=== PATIENT | female | born 1990 | race Caucasian/White ===

== ENCOUNTER 2018-03-12 10:46 | Emergency (ER) | payer BC, OTHER ==
--- OUTSIDE RECORDS SUMMARY | 2018-03-12 10:49 | XMS REPORT | Summary of Care ---
:1990 Author Organization [facility] [address] Address [address] [place] [address]- Encounter HQ Encntr_alias(FIN) [id number] Date(s): 04/27/17 - 04/27/17 [facility] [address] [place] [address] [phone] Discharge Disposition: Home or Self Care Attending Physician: Alfredo Malcolm MD Referring Physician: Brooke Shukla MD Vital Signs No data available for this section Problem List Condition Effective Dates Status Health Status Informant Obesity(Confirmed) Active Seizures(Confirmed) Resolved Allergies, Adverse Reactions, Alerts Substance Reaction Severity Status NKDA Active Medications No data available for this section Results No data available for this section Immunizations No data available for this section Procedures No data available for this section Social History Social History Type Response Smoking Status Never smoker; Exposure to Tobacco Smoke None; Cigarette Smoking Last 365 Days No; Reg Smoking Cessation Counseling No entered on: 04/27/17 Assessment and Plan No data available for this section
--- OUTSIDE RECORDS SUMMARY | 2018-03-12 10:49 | XMS REPORT | Continuity of Care Document ---
:1990 Author Organization Interface Problems Problem Status Onset Classification Date Comments Source Date Reported Obesity Active Problem 07/17/2017 [facility] Seizures Resolved Problem 07/17/2017 [facility] Medications Medication Details Route Status Patient Ordering Order Source Instructions Provider Date Allergies, Adverse Reactions, Alerts Substance Category Reaction Severity Reaction Status Date Comments Source type Reported Immunizations Immunization Date Given Site Status Last Updated Comments Source Results Order Results Value Reference Date Interpretation Comments Source Name Range Vital Signs Vital Sign Value Date Comments Source Encounters Location Location Encounter Encounter Reason Attending ADM DC Status Source Details Type Number For Provider Date Date Visit Outpatient [id number] [place] 06/02 Active [facility] [id number] [place] 09/08 [facility] [id number] [place] 12/08 [facility] Outpatient [id number] [place] 12/22 [facility] Outpatient [id number] [place] 04/27 [facility] Outpatient [id number] [place] 04/27 [facility] [id number] [facility] 04/27 04/28 [facility] Pre-Reg [place] /2017 [facility] 250 Outpatient [id number] [place] 12/29 Active [facility] Outpatient [id number] [place] 03/21 [facility] Procedures Procedure Code Date Perfomer Comments Source
[2018-03-12] MEDS ORDERED: ONDANSETRON 4 MG/2 ML VIAL ONE (11:24)
[2018-03-12] MEDS ORDERED: NA CHLORIDE 0.9% 1,000 ML ONE (11:24)
[2018-03-12 11:40] LABS: Absolute Lymphocytes (CBC) 0.7 K/uL (0.7-4.9); Absolute Monocytes 0.6 K/uL (0.1-1.3); Basophils % 0.2 % (0-1.3); Eosinophils % 0.9 % (0-4.4); Hematocrit 43.5 % (36.0-45.0); Lymphocytes % 7.9 % (15.3-44.8); MCH 29.9 pg (27.0-35.0); MCV 85.8 fL (80-100); MPV 9.4 fL (7.6-11.3); Monocytes % 7.1 % (3.3-12.3); RBC Red Blood Cell Count 5.06 M/uL (3.86-4.86)
[2018-03-12 12:03] LABS: ALT/SGPT 16 U/L (12-78); Albumin 4.1 g/dL (3.4-5.0); Alkaline Phosphatase 52 U/L (45-117); BUN Blood Urea Nitrogen 16 mg/dL (7-18); Bicarbonate 27 mmol/L (21-32); Bilirubin Direct 0.1 mg/dL (0-0.2); Bilirubin Total 0.5 mg/dL (0.2-1.0); Glucose Level 82 mg/dL (74-106); Lipase 112 U/L (73-393); Potassium 3.8 mmol/L (3.5-5.1); Protein, Total 7.7 g/dL (6.4-8.2); Sodium Level 139 mmol/L (136-145)
[2018-03-12 12:06] LABS: AST/SGOT < 3 U/L (15-37)
--- NOTE | 2018-03-12 12:14 | ER ---
Nurse's Notes [facility] Name: Yael Alvarez Age: 27 yrs Sex: Female : 1990 Arrival Date: 03/12/2018 Time: 10:55 Bed 8 Private MD: None, None Diagnosis: Nausea and vomiting;Diarrhea, unspecified Presentation: 03/12 10:58 Presenting complaint: Patient states: n/v/d since yesterday. Denies fever. Transition sv of care: patient was not received from another setting of care. Onset of symptoms was March 11, 2018. Care prior to arrival: None. 10:58 Method Of Arrival: Ambulatory sv 10:58 Acuity: ANNABEL 3 sv 13:02 Risk Assessment: Do you want to hurt yourself or someone else? Patient reports no aj desire to harm self or others. Initial Sepsis Screen: Does the patient meet any 2 criteria? No. Patient's initial sepsis screen is negative. Does the patient have a suspected source of infection? No. Patient's initial sepsis screen is negative. Historical: - Allergies: 10:59 No Known Allergies; sv - Home Meds: 10:59 Depakote Oral [Active]; sv - PMHx: 10:59 Seizures; sv - PSHx: 10:59 None; sv - Immunization history:: Flu vaccine is not up to date. - Social history:: Smoking status: Patient/guardian denies using tobacco. - Ebola Screening: : No symptoms or risks identified at this time. Screenin:35 Abuse screen: Denies threats or abuse. Denies injuries from another. Nutritional aj screening: No deficits noted. Tuberculosis screening: No symptoms or risk factors identified. Fall Risk None identified. Assessment: 11:35 General: Appears in no apparent distress. comfortable, Behavior is calm, cooperative, aj appropriate for age. Pain: Denies pain. Neuro: Level of Consciousness is awake, alert, obeys commands, Oriented to person, place, time, situation, Appropriate for age. Respiratory: Airway is patent Respiratory effort is even, unlabored, Respiratory pattern is regular, symmetrical. GI: Abdomen is flat, Reports diarrhea, nausea, vomiting. Derm: Skin is intact, is healthy with good turgor, Skin is pink, warm \T\ dry. normal. 13:00 Reassessment: Patient appears in no apparent distress at this time. No changes from aj previously documented assessment. Patient and/or family updated on plan of care and expected duration. Pain level reassessed. Patient is alert, oriented x 3, equal unlabored respirations, skin warm/dry/pink. Patient denies pain at this time. Patient states feeling better. Patient states symptoms have improved. Vital Signs: 10:59 BP 138 / 82; Pulse 98; Resp 18; Temp 97.4; Pulse Ox 99% ; Height 5 ft. 9 in. (175.26 sv cm); Pain 0/10; 11:03 Weight 102.06 kg (M); aa5 12:58 BP 106 / 50; Pulse 81; Resp 16; Pulse Ox 99% on R/A; aj 13:00 BP 106 / 50; Pulse 81; Resp 18; Pulse Ox 99% on R/A; aj 11:03 Body Mass Index 33.23 (102.06 kg, 175.26 cm) aa5 ED Course: 10:55 Patient arrived in ED. mr 10:56 None, None is Private Physician. mr 10:59 Triage completed. sv 11:00 Arm band placed on. sv 11:01 Keiko Royal, RN is Primary Nurse. aj 11:04 Manjeet Louise, BOTTLE WASHER is PHCP. pm1 11:04 Ayden Lama MD is Attending Physician. pm1 11:35 Patient has correct armband on for positive identification. aj 11:35 Inserted saline lock: 20 gauge in right forearm, using aseptic technique. Blood aj collected. 13:01 No provider procedures requiring assistance completed. IV discontinued, intact, aj bleeding controlled, No redness/swelling at site. Pressure dressing applied. Administered Medications: 11:34 Drug: NS 0.9% 1000 ml Route: IV; Rate: 1000 ml; Site: right forearm; aj 12:58 Follow up: BP 106 / 50; Pulse 81 bpm; Resp 16 bpm; Pulse Ox 99% RA; Response: No aj adverse reaction 12:59 Follow up: IV Status: Completed infusion; IV Intake: 1000ml aj 11:34 Drug: Zofran 4 mg Route: IVP; Site: right forearm; aj 12:59 Follow up: Response: No adverse reaction; Nausea is decreased aj Intake: 12:59 IV: 1000ml; Total: 1000ml. aj Outcome: 12:13 Discharge ordered by . pm1 13:01 Discharged to home ambulatory, with significant other. nakul 13:01 Condition: good 13:01 Discharge instructions given to patient, significant other, Instructed on discharge instructions, follow up and referral plans. medication usage, Demonstrated understanding of instructions, follow-up care, medications, Prescriptions given X 1. 13:03 Patient left the ED. nakul Signatures: Cris Mcclure RN RN sv Myers, Amanda, RN RN aj Rivera, Mary mr Ronquillo, Reyna RN RN aa5 Manjeet Louise, [place] BOTTLE WASHER pm1 Corrections: (The following items were deleted from the chart) 13:03 13:02 General: Appears in no apparent distress. comfortable, aj nakul 13:03 13:02 GI: Reports nausea, nakul mota
--- NOTE | 2018-03-12 12:15 | EDPHYS ---
Physician Documentation [facility] Name: Yael Alvarez Age: 27 yrs Sex: Female : 1990 Arrival Date: 03/12/2018 Time: 10:55 Bed 8 Private MD: None, None ED Physician Ayden Lama HPI: 03/12 11:13 This 27 yrs old Female presents to ER via Ambulatory with complaints of pm1 Vomiting. 11:13 The patient presents to the emergency department with nausea, vomiting, 6 times since pm1 last night, described as undigested food, diarrhea, 4 times since the onset of symptoms. Onset: The symptoms/episode began/occurred last night. Possible causes: unknown. The symptoms are aggravated by food , The symptoms are alleviated by nothing. Associated signs and symptoms: Pertinent negatives: abdominal pain, dysuria, fever. Severity of symptoms: in the emergency department the symptoms are unchanged. The patient has not recently seen a physician. Patient with vomiting and diarrhea onset since last night. She came to the ER because she was concerned that she would not be able to keep her medications for seizures down. She was able to take her medication this AM. Historical: - Allergies: 10:59 No Known Allergies; sv - Home Meds: 10:59 Depakote Oral [Active]; sv - PMHx: 10:59 Seizures; sv - PSHx: 10:59 None; sv - Immunization history:: Flu vaccine is not up to date. - Social history:: Smoking status: Patient/guardian denies using tobacco. - Ebola Screening: : No symptoms or risks identified at this time. ROS: 11:13 Constitutional: Negative for fever, chills, and weight loss, Eyes: Negative for injury, pm1 pain, redness, and discharge, ENT: Negative for injury, pain, and discharge, Neck: Negative for injury, pain, and swelling, Cardiovascular: Negative for chest pain, palpitations, and edema, Respiratory: Negative for shortness of breath, cough, wheezing, and pleuritic chest pain. 11:13 Back: Negative for injury and pain, : Negative for injury, bleeding, discharge, and swelling, MS/Extremity: Negative for injury and deformity, Skin: Negative for injury, rash, and discoloration, Neuro: Negative for headache, weakness, numbness, tingling, and seizure. 11:13 Abdomen/GI: Positive for nausea, vomiting, and diarrhea, Negative for abdominal pain. Exam: 11:13 Constitutional: This is a well developed, well nourished patient who is awake, alert, pm1 and in no acute distress. Head/Face: Normocephalic, atraumatic. Eyes: Pupils equal round and reactive to light, extra-ocular motions intact. Lids and lashes normal. Conjunctiva and sclera are non-icteric and not injected. Cornea within normal limits. Periorbital areas with no swelling, redness, or edema. ENT: Nares patent. No nasal discharge, no septal abnormalities noted. Tympanic membranes are normal and external auditory canals are clear. Oropharynx with no redness, swelling, or masses, exudates, or evidence of obstruction, uvula midline. Mucous membranes moist. Neck: Trachea midline, no thyromegaly or masses palpated, and no cervical lymphadenopathy. Supple, full range of motion without nuchal rigidity, or vertebral point tenderness. No Meningismus. Chest/axilla: Normal chest wall appearance and motion. Nontender with no deformity. No lesions are appreciated. Cardiovascular: Regular rate and rhythm with a normal S1 and S2. No gallops, murmurs, or rubs. Normal PMI, no JVD. No pulse deficits. Respiratory: Lungs have equal breath sounds bilaterally, clear to auscultation and percussion. No rales, rhonchi or wheezes noted. No increased work of breathing, no retractions or nasal flaring. 11:13 Back: No spinal tenderness. No costovertebral tenderness. Full range of motion. Skin: Warm, dry with normal turgor. Normal color with no rashes, no lesions, and no evidence of cellulitis. MS/ Extremity: Pulses equal, no cyanosis. Neurovascular intact. Full, normal range of motion. 11:13 Abdomen/GI: Inspection: abdomen appears normal, Bowel sounds: normal, Palpation: abdomen is soft and non-tender, in all quadrants, mass, is not appreciated, rebound tenderness, is not appreciated. 11:13 Neuro: Orientation: is normal, Motor: is normal, Sensation: is normal, no obvious gross deficits, Gait: is steady, at a normal pace, without difficulty. Vital Signs: 10:59 BP 138 / 82; Pulse 98; Resp 18; Temp 97.4; Pulse Ox 99% ; Height 5 ft. 9 in. (175.26 sv cm); Pain 0/10; 11:03 Weight 102.06 kg (M); aa5 12:58 BP 106 / 50; Pulse 81; Resp 16; Pulse Ox 99% on R/A; aj 13:00 BP 106 / 50; Pulse 81; Resp 18; Pulse Ox 99% on R/A; aj 11:03 Body Mass Index 33.23 (102.06 kg, 175.26 cm) aa5 MDM: 11:04 Patient medically screened. pm1 11:18 Data reviewed: vital signs. Data interpreted: Pulse oximetry: on room air is 99 %. pm1 Interpretation: normal. 12:08 ED course: Patient's nausea resolved. Patient feels hungry and ready to eat. pm1 12:09 Counseling: I had a detailed discussion with the patient and/or guardian regarding: the pm1 historical points, exam findings, and any diagnostic results supporting the discharge/admit diagnosis, lab results, the need for outpatient follow up, to return to the emergency department if symptoms worsen or persist or if there are any questions or concerns that arise at home. 03/12 11:13 Order name: Basic Metabolic Panel; Complete Time: 12:07 pm1 12 11:13 Order name: CBC with Diff; Complete Time: 12:05 pm1 12 11:13 Order name: Hepatic Function; Complete Time: 12:07 pm1 12 11:13 Order name: Lipase; Complete Time: 12:07 pm1 12 11:13 Order name: IV Saline Lock; Complete Time: 11:34 pm1 12 11:13 Order name: Labs collected and sent; Complete Time: 11:35 pm1 Administered Medications: 11:34 Drug: NS 0.9% 1000 ml Route: IV; Rate: 1000 ml; Site: right forearm; aj 12:58 Follow up: BP 106 / 50; Pulse 81 bpm; Resp 16 bpm; Pulse Ox 99% RA; Response: No aj adverse reaction 12:59 Follow up: IV Status: Completed infusion; IV Intake: 1000ml aj 11:34 Drug: Zofran 4 mg Route: IVP; Site: right forearm; aj 12:59 Follow up: Response: No adverse reaction; Nausea is decreased aj Disposition: 03/12/18 12:13 Discharged to Home. Impression: Nausea and vomiting, Diarrhea, unspecified. - Condition is Stable. - Discharge Instructions: Food Choices to Help Relieve Diarrhea, Adult, Diarrhea, Adult, Food Poisoning, Nausea and Vomiting, Adult, Viral Gastroenteritis, Adult. - Prescriptions for Zofran 4 mg Oral Tablet - take 1 tablet by ORAL route every 8 hours As needed; 20 tablet. - Work release form, Medication Reconciliation Form, Thank You Letter form. - Follow up: Emergency Department; When: As needed; Reason: Worsening of condition. Follow up: Private Physician; When: 2 - 3 days; Reason: Recheck today's complaints, Continuance of care, Re-evaluation by your physician. - Problem is new. - Symptoms have improved. Addendum: 03/14/2018 06:22 Co-signature as Attending Physician, Ayden Lama MD I agree with the assessment and c farias plan of care. Signatures: Dispatcher [employer] Cris Trinidad RN RN sv Myers, Amanda, RN RN aj Anderson, Corey, MD MD cha Marinas, Patrick, ENTER[employer]ISE SYSTEMS ARCHITECT ENTERPRISE SYSTEMS ARCHITECT pm1 Corrections: (The following items were deleted from the chart) 03/12 13:03 12:13 03/12/2018 12:13 Discharged to Home. Impression: Nausea and vomiting; Diarrhea, aj unspecified. Condition is Stable. Forms are Medication Reconciliation Form, Thank You Letter, Antibiotic Education, Prescription Opioid Use. Follow up: Emergency Department; When: As needed; Reason: Worsening of condition. Follow up: Private Physician; When: 2 - 3 days; Reason: Recheck today's complaints, Continuance of care, Re-evaluation by your physician. Problem is new. Symptoms have improved. pm1
== END 2018-03-12 13:03 | disposition home or self-care (01) ==
LOC: ER 10:46
DX: R11.2 Nausea with vomiting, unspecified (principal); R19.7 Diarrhea, unspecified; G40.909 Epilepsy, unspecified, not intractable, without status epilepticus; Z79.899 Other long term (current) drug therapy
CPT/HCPCS: 36415; 80048; 80076; 83690; 85025; 96361; 96374; 99284; J2405; J7030

== ENCOUNTER 2018-07-23 09:47 | Emergency (ER) | payer BC ==
--- OUTSIDE RECORDS SUMMARY | 2018-07-23 09:50 | XMS REPORT | Summary of Care ---
:1990 Author Organization [facility] Address [address], [address] [place] [address]- Encounter HQ Encntr_alias(FIN) [id number] Date(s): 12/29/17 - 12/29/17 [facility] [address] [place] [address]- [phone] Attending Physician: Alfredo Malcolm MD Referring Physician: Brooke Shukla MD Vital Signs No data available for this section Problem List Condition Effective Dates Status Health Status Informant Obesity(Confirmed) Active Intractable partial complex seizure Active disorder(Confirmed) Seizures(Confirmed) Resolved Allergies, Adverse Reactions, Alerts Substance Reaction Severity Status NKDA Active Medications No data available for this section Results No data available for this section Immunizations No data available for this section Procedures No data available for this section Social History Social History Type Response Employment/School 1 Alcohol Current, Type Beer.2 Smoking Status Unknown if ever smoked; Exposure to Tobacco Smoke Unable to obtain; Cigarette Smoking Last 365 Days No; Reg Smoking Cessation Counseling No entered on: 05/25/18 1Can release medical information to Obdulia Ambrose-Boyfriend, Sister Nicole Patel21 beer in the last 2wks Assessment and Plan No data available for this section
--- OUTSIDE RECORDS SUMMARY | 2018-07-23 09:50 | XMS REPORT | Continuity of Care Document ---
:1990 Author Organization Interface Problems Problem Status Onset Classification Date Comments Source Date Reported Obesity Active Problem 07/18/2018 [facility] Seizures Resolved Problem 07/18/2018 [facility] Intractable Active Problem 07/18/2018 [facility] seizure disorder Medications Medication Details Route Status Patient Ordering [...] Number For Provider Date Date Visit Outpatient [id number] [place] [facility] [place] [facility] [id number] [place] [facility]/08 [facility] [place] [facility] [id number] [place] 12[facility]08 [facility] [id number] [place] 12/22 [facility] [place] [facility] [place] [facility] [id number] [place] 04/27 [facility] [id number] [place] 04/27 [facility] [place] [facility] [id number] [place] 04/27 04/28 [facility] 4 [place] /2017 [facility] [place] [address] Outpatient [id number] [place] 12/29 [facility] [place] [facility] [id number] [place] 12/29 12/29 [facility] 6 [facility] [place] Outpatient [id number] [place] 03/21 [facility] [id number] PATY KRELL 05/25 [facility] [place] [facility] [id number] PATY KRELL 06/17 [facility] [id number] PATY KRELL 07/29 [facility] [place] Procedures Procedure Code Date Perfomer Comments Source
--- NOTE | 2018-07-23 10:29 | EDPHYS ---
Physician Documentation [facility] Name: Yael Alvarez Age: 27 yrs Sex: Female : 1990 Arrival Date: 07/23/2018 Time: 09:50 Bed 5 Private MD: None, None ED Physician Ulises Rain HPI: 07/23 10:32 This 27 yrs old Female presents to ER via Ambulatory with complaints of Arm snw Pain. 10:32 The patient or guardian complains of decreased range of motion, pain, that is acute. snw The complaints affect the posterior aspect of right shoulder. Context: The problem was sustained at home, resulted from unknown cause. Onset: The symptoms/episode began/occurred gradually, 3 day(s) ago, and became persistent. Modifying factors: The symptoms are alleviated by nothing. the symptoms are aggravated by movement. Associated signs and symptoms: The patient has no apparent associated signs or symptoms. Severity of symptoms: At their worst the symptoms were moderate, in the emergency department the symptoms are unchanged. The patient has not experienced similar symptoms in the past. It is unknown whether or not the patient has recently seen a physician. hx of epilepsy. 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 - Social history:: Smoking status: Patient/guardian denies using tobacco. - Ebola Screening: : No symptoms or risks identified at this time. ROS: 10:31 Constitutional: Negative for fever, chills, and weight loss, Eyes: Negative for injury, snw pain, redness, and discharge, ENT: Negative for injury, pain, and discharge, Neck: Negative for injury, pain, and swelling, Cardiovascular: Negative for chest pain, palpitations, and edema, Respiratory: Negative for shortness of breath, cough, wheezing, and pleuritic chest pain, Abdomen/GI: Negative for abdominal pain, nausea, vomiting, diarrhea, and constipation, Back: Negative for injury and pain, : Negative for injury, bleeding, discharge, and swelling, Skin: Negative for injury, rash, and discoloration, Neuro: Negative for headache, weakness, numbness, tingling, and seizure, Psych: Negative for depression, anxiety, suicide ideation, homicidal ideation, and hallucinations. 10:31 MS/extremity: Positive for pain, tenderness, of the posterior aspect of right shoulder. Exam: 10:30 Constitutional: This is a well developed, well nourished patient who is awake, alert, snw and in no acute distress. Head/Face: Normocephalic, atraumatic. Eyes: Pupils equal round and reactive to light, extra-ocular motions intact. Lids and lashes normal. Conjunctiva and sclera are non-icteric and not injected. Cornea within normal limits. Periorbital areas with no swelling, redness, or edema. ENT: Nares patent. No nasal discharge, no septal abnormalities noted. Tympanic membranes are normal and external auditory canals are clear. Oropharynx with no redness, swelling, or masses, exudates, or evidence of obstruction, uvula midline. Mucous membranes moist. Neck: Trachea midline, no thyromegaly or masses palpated, and no cervical lymphadenopathy. Supple, full range of motion without nuchal rigidity, or vertebral point tenderness. No Meningismus. Chest/axilla: Normal chest wall appearance and motion. Nontender with no deformity. No lesions are appreciated. Cardiovascular: Regular rate and rhythm with a normal S1 and S2. No gallops, murmurs, or rubs. Normal PMI, no JVD. No pulse deficits. Respiratory: Lungs have equal breath sounds bilaterally, clear to auscultation and percussion. No rales, rhonchi or wheezes noted. No increased work of breathing, no retractions or nasal flaring. Abdomen/GI: Soft, non-tender, with normal bowel sounds. No distension or tympany. No guarding or rebound. No evidence of tenderness throughout. Back: No spinal tenderness. No costovertebral tenderness. Full range of motion. Skin: Warm, dry with normal turgor. Normal color with no rashes, no lesions, and no evidence of cellulitis. Neuro: Awake and alert, GCS 15, oriented to person, place, time, and situation. Cranial nerves II-XII grossly intact. Motor strength 5/5 in all extremities. Sensory grossly intact. Cerebellar exam normal. Normal gait. 10:30 Musculoskeletal/extremity: Extremities: grossly normal except: noted in the right scapular area: tenderness, Circulation is intact in all extremities. Sensation intact. Compartment Syndrome exam of affected extremity: is normal. Vital Signs: 09:56 BP 130 / 70; Pulse 81; Resp 16; Temp 98.1; Pulse Ox 100% on R/A; Pain 6/10; hb 10:56 BP 117 / 69; Pulse 78; Resp 18; Temp 97.9; Pulse Ox 99% on R/A; ph MDM: 09:54 Patient medically screened. snw 10:32 Data reviewed: vital signs, nurses notes. Data interpreted: Pulse oximetry: on room air snw is 100 %. Interpretation: normal. Counseling: I had a detailed discussion with the patient and/or guardian regarding: the historical points, exam findings, and any diagnostic results supporting the discharge/admit diagnosis, the need for outpatient follow up, to return to the emergency department if symptoms worsen or persist or if there are any questions or concerns that arise at home. Special discussion: Based on the history and exam findings, there is no indication for further emergent testing or inpatient evaluation. I discussed with the patient/guardian the need to see the orthopedic surgeon for further evaluation of the symptoms. I discussed with the patient/guardian the need to see the primary care provider for further evaluation of the symptoms. Administered Medications: 10:35 Drug: TORadol 30 mg Route: IM; Site: right deltoid; ph 10:49 Follow up: Response: No adverse reaction ph 10:35 Drug: Flexeril 10 mg Route: PO; ph 10:50 Follow up: Response: No adverse reaction ph Disposition: 11:15 Co-signature as Attending Physician, Ulises Rain MD I agree with the assessment and kdr plan of care. Disposition: 07/23/18 10:28 Discharged to Home. Impression: Pain in right shoulder, Muscle spasm. - Condition is Stable. - Discharge Instructions: Joint Pain, Muscle Cramps and Spasms, Musculoskeletal Pain, Shoulder Pain, Cryotherapy, [id number], Heat Therapy. - Prescriptions for Diclofenac Sodium 75 mg Oral Tablet Sustained Release - take 1 tablet by ORAL route 2 times per day; 30 tablet. orphenadrine citrate 100 mg Oral Tablet Sustained Release - take 1 tablet by ORAL route 2 times per day As needed; 20 tablet. - Work release form, Medication Reconciliation Form, Thank You Letter, Antibiotic Education, Prescription Opioid Use form. - Follow up: Private Physician; When: 2 - 3 days; Reason: Recheck today's complaints, Continuance of care, Re-evaluation by your physician. Follow up: Emergency Department; When: As needed; Reason: Worsening of condition. Signatures: Ulises Rain MD MD [facility] Rolanda Major, WHIZZER OPERATOR-C WHIZZER OPERATOR-Csnw Kylie Saldana RN RN Kristi Hardy RN RN Corrections: (The following items were deleted from the chart) 10:56 10:28 07/23/2018 10:28 Discharged to Home. Impression: Pain in right shoulder; Muscle ph spasm. Condition is Stable. Forms are Medication Reconciliation Form, Thank You Letter, Antibiotic Education, Prescription Opioid Use. Follow up: Private Physician; When: 2 - 3 days; Reason: Recheck today's complaints, Continuance of care, Re-evaluation by your physician. Follow up: Emergency Department; When: As needed; Reason: Worsening of condition. snw
--- NOTE | 2018-07-23 10:29 | ER ---
Nurse's Notes [facility] Name: Yael Alvarez Age: 27 yrs Sex: Female : 1990 Arrival Date: 07/23/2018 Time: 09:50 Bed 5 Private MD: None, None Diagnosis: Pain in right shoulder;Muscle spasm Presentation: 07/23 09:55 Presenting complaint: Right shoulder pain since last night. Denies injury. Transition hb of care: patient was not received from another setting of care. Onset of symptoms was July 22, 2018. Risk Assessment: Do you want to hurt yourself or someone else? Patient reports no desire to harm self or others. Care prior to arrival: None. 09:55 Method Of Arrival: Ambulatory hb 09:55 Acuity: ANNABEL 4 hb 10:37 Initial Sepsis Screen: Does the patient meet any 2 criteria? No. Patient's initial ph sepsis screen is negative. Does the patient have a suspected source of infection? No. Patient's initial sepsis screen is negative. 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 - Social history:: Smoking status: Patient/guardian denies using tobacco. - Ebola Screening: : No symptoms or risks identified at this time. Screenin:57 Abuse screen: Denies threats or abuse. Denies injuries from another. Nutritional hb screening: No deficits noted. Tuberculosis screening: No symptoms or risk factors identified. Fall Risk None identified. Assessment: 10:04 General: Appears in no apparent distress. Behavior is calm, cooperative. Pain: iw Complains of pain in anterior aspect of right shoulder and posterior aspect of right shoulder. Neuro: Level of Consciousness is awake, alert, obeys commands, Oriented to person, place, time, situation, Moves all extremities. Cardiovascular: Patient's skin is warm and dry. Respiratory: Respiratory effort is even, unlabored, Respiratory pattern is regular. GI: No signs and/or symptoms were reported involving the gastrointestinal system. Derm: Skin is intact, is healthy with good turgor. Musculoskeletal: Range of motion: intact in all extremities, Reports pain in anterior aspect of right shoulder and posterior aspect of right shoulder. 10:37 Reassessment: Patient appears in no apparent distress at this time. Patient and/or ph family updated on plan of care and expected duration. Pain level reassessed. Patient is alert, oriented x 3, equal unlabored respirations, skin warm/dry/pink. Pt resting quietly, d/cpending 15 min shot time. Vital Signs: 09:56 BP 130 / 70; Pulse 81; Resp 16; Temp 98.1; Pulse Ox 100% on R/A; Pain 6/10; hb 10:56 BP 117 / 69; Pulse 78; Resp 18; Temp 97.9; Pulse Ox 99% on R/A; ph ED Course: 09:50 Patient arrived in ED. mr 09:50 None, None is Private Physician. mr 09:53 Luisa Thompson, RN is Primary Nurse. iw 09:54 Rolanda Major [facility]-C [facility]. snw 09:54 Ulises Rain MD is Attending Physician. snw 09:56 Triage completed. hb 09:56 Arm band placed on. hb 10:06 No provider procedures requiring assistance completed. Patient did not have IV access iw during this emergency room visit. 10:37 Patient has correct armband on for positive identification. Bed in low position. Call ph light in reach. Pulse ox on. NIBP on. Door closed. Noise minimized. Warm blanket given. Administered Medications: 10:35 Drug: TORadol 30 mg Route: IM; Site: right deltoid; ph 10:49 Follow up: Response: No adverse reaction ph 10:35 Drug: Flexeril 10 mg Route: PO; ph 10:50 Follow up: Response: No adverse reaction ph Outcome: 10:28 Discharge ordered by . snw 10:56 Discharged to home ambulatory. ph 10:56 Condition: good 10:56 Discharge instructions given to patient, Instructed on discharge instructions, follow up and referral plans. medication usage, Demonstrated understanding of instructions, follow-up care, medications, Prescriptions given X 2. 10:56 Patient left the ED. ph Signatures: Rolanda Major FNP-C FNP-Leelee GabrielLing mr Luisa Thompson RN RN iw Kylie Saldana RN RN ph Hardy, Kristi, RN RN hb
[2018-07-23] MEDS ORDERED: CYCLOBENZAPRINE 10 MG TAB ONE (10:43)
[2018-07-23] MEDS ORDERED: KETOROLAC 30 MG/ML INJ ONE (10:43)
== END 2018-07-23 10:56 | disposition home or self-care (01) ==
LOC: ER 09:47
DX: M25.511 Pain in right shoulder (principal); M62.838 Other muscle spasm
CPT/HCPCS: 96372; 99283